=== PATIENT | female | born 1975 | race African-American/Black ===

== ENCOUNTER 2016-11-18 10:44 | Emergency (ER) | payer OTHER ==
[2016-11-18 11:00] VITALS: TEMP 98.3; BMI 45.1
--- NOTE | 2016-11-18 11:35 | PDOC ---
History of Present Illness - General Chief Complaint: Lightheaded Stated Complaint: DIZZINESS, CHEST TIGHTNESS, FATIGUE Time Seen by Provider: 11/18/16 11:15 History Source: Patient - History of Present Illness Timing/Duration: 1 week Associated Symptoms: denies: cough, diaphoresis, fever/chills, headaches, nausea /vomiting, shortness of breath, syncope, weakness Past History - Past Medical History Allergies/Adverse Reactions: Allergies Allergy/AdvReac Type Severity Reaction Status Date / Time ALL RAW FRUIT Allergy Severe TONGUE Uncoded 11/18/16 10:55 SWELLING Home Medications: Ambulatory Orders NK [No Known Home Medication] 11/18/16 Anemia: No Asthma: Yes Cancer: No Cardiac Disorders: No CVA: No COPD: No CHF: No Dementia: No Diabetes: No GI Disorders: No Disorders: No HTN: No Hypercholesterolemia: No Liver Disease: No Seizures: No Thyroid Disease: No - Surgical History Abdominal Surgery: No Appendectomy: No Cardiac Surgery: No Cholecystectomy: No Lung Surgery: No Neurologic Surgery: No Orthopedic Surgery: No - Psycho/Social/Smoking Cessation Hx Anxiety: No Suicidal Ideation: No Smoking History: Never smoked Have you smoked in the past 12 months: No Information on smoking cessation initiated: No Hx Alcohol Use: No Drug/Substance Use Hx: No Substance Use Type: None Hx Substance Use Treatment: No Review of Systems - Review of Systems Constitutional: No: Chills, Fever Respiratory: No: Cough, Shortness of Breath, Wheezing Cardiac (ROS): No: Lightheadedness, Palpitations, Syncope ABD/GI: No: Nausea, Vomiting Neurological: Yes: Dizziness. No: Headache *Physical Exam - Vital Signs Last Vital Signs Temp Pulse Resp BP Pulse Ox 98.3 F 78 18 162/93 100 11/18/16 10:56 11/18/16 10:56 11/18/16 10:56 11/18/16 10:56 11/18/16 10:56 - Physical Exam General Appearance: Yes: Appropriately Dressed. No: Apparent Distress HEENT: positive: Normal Voice Neck: positive: Supple Respiratory/Chest: positive: Lungs Clear, Normal Breath Sounds. negative: Respiratory Distress Cardiovascular: positive: Regular Rate, S1, S2 Extremity: positive: Normal Inspection Integumentary: positive: Dry, Warm Neurologic: positive: Fully Oriented, Alert, Normal Mood/Affect, Motor Strength 5/5. negative: Facial Droop Heart Score/ECG Review - ECG Intrepretation Comment:: 11/18/16 12:16 Twelve-lead EKG was performed and reviewed by me. There is normal sinus rhythm with a normal rate. The axis is normal. The intervals are normal. There are no ST or T wave abnormalities. Impression: Normal twelve-lead EKG ED Treatment Course - LABORATORY CBC & Chemistry Diagram: 11/18/16 11:49 11/18/16 11:40 - RADIOLOGY Radiology Studies Ordered: Category Date Time Status CHEST X-RAY PORTABLE* [RAD] Stat Radiology 11/18/16 11:24 Ordered Medical Decision Making - Medical Decision Making 11/18/16 11:30 41-year-old female, history of asthma, no prior admissions or intubation, uses pump and nebulizer machine at home here with multiple complaints. Patient complaining of intermittent dizziness 1 week, described as lightheadedness regardless of position and lasts for seconds to minutes. Also c/o blurred vision b/l. No vertigo, headache, nausea, vomiting, slurred speech or focal weakness. No history of similar episode in the past. Denies any inciting agents. Patient also complaining of intermittent chest tightness that started around the same time felt like her asthma, but for unclear reasons, did not try using her pump or machine. No wheezing, shortness of breath, diaphoresis, palpitations, leg pain or swelling. Currently asymptomatic See exam Chest tightness ?asthma flare, not great story for ACS and PERcs out Stable w/ clear chest/lungs -ekg/cxr/trop Dizziness ?metabolic (sig fmhx of DM though pt does not carry dx), doubt cardiac and unlikely CVA as no vertigo and no neuro deficits in ED -ekg -labs 11/18/16 14:08 Workup neg in ED. Pt remains asymptomatic and stable for discharge at this time to f/u with PMD if sxs persist 11/18/16 14:27 *DC/Admit/Observation/Transfer Diagnosis at time of Disposition: Dizziness, Chest tightness - Discharge Dispostion Disposition: HOME Condition at time of disposition: Good - Patient Instructions Printed Discharge Instructions: Dizziness, Nonvertigo Additional Instructions: Your blood work did not reveal any obvious reasons for your symptoms at this time. Please follow-up with your PMD if symptoms persist. Try to use albuterol pump for recurrent chest tightness to see if symptoms improve.
[2016-11-18 12:02] LABS: BASOPHIL 0.3 % (0-2.0); EOSINOPHIL 4.8 % (0-4.5); MCH 31.5 pg (25.7-33.7); MCHC 32.7 g/dl (32.0-36.0); MEAN CELL VOLUME 96.1 fl (80-96); MEAN PLT VOLUME 8.4 fl (7.5-11.1); NEUTROPHILS 55.2 % (42.8-82.8); PLATELET COUNT 224 K/MM3 (134-434); RDW 13.2 % (11.6-15.6); WHITE BLOOD COUNT 5.6 K/mm3 (4.0-10.0)
[2016-11-18 12:13] LABS: URINE APPEARANCE CLEAR; URINE BILIRUBIN NEGATIVE (NEGATIVE); URINE BLOOD NEGATIVE (NEGATIVE); URINE COLOR LTYELLOW; URINE GLUCOSE (UA) NEGATIVE (NEGATIVE); URINE KETONE NEGATIVE (NEGATIVE); URINE LEUK ESTERASE NEGATIVE (NEGATIVE); URINE NITRITE NEGATIVE (NEGATIVE); URINE PROTEIN NEGATIVE (NEGATIVE); URINE UROBILINOGEN NEGATIVE E.U./dl (0.2-1.0)
[2016-11-18 12:31] LABS: ALBUMIN 3.6 g/dl (3.4-5.0); ANION GAP 8 (8-16); BILIRUBIN,TOTAL 0.4 mg/dL (0.2-1.0); CALCIUM 8.8 mg/dL (8.5-10.1); CO2 26 mmol/L (21-32); CREATININE 0.7 mg/dL (0.55-1.02); GLUCOSE,RANDOM 112 mg/dL (74-106); SGOT/AST 14 U/L (15-37); SGPT/ALT 23 U/L (12-78); TOT PROT 6.8 g/dl (6.4-8.2)
[2016-11-18 12:34] LABS: ALK PHOS 72 U/L (45-117); TROPONIN I < 0.02 ng/ml (0.00-0.05)
--- NOTE | 2016-11-18 14:40 | PDOC ---
*Physical Exam - Vital Signs Last Vital Signs Temp Pulse Resp BP Pulse Ox 98.3 F 78 18 162/93 100 11/18/16 10:56 11/18/16 10:56 11/18/16 10:56 11/18/16 10:56 11/18/16 10:56 ED Treatment Course - LABORATORY CBC & Chemistry Diagram: 11/18/16 11:49 11/18/16 11:40 - ADDITIONAL ORDERS Additional order review: Laboratory Results 11/18/16 11/18/16 11/18/16 11:40 11:40 11:40 Sodium 139 Potassium 4.0 Chloride 105 Carbon Dioxide 26 Anion Gap 8 BUN 11 Creatinine 0.7 Creat Clearance w eGFR > 60 Random Glucose 112 H Calcium 8.8 Total Bilirubin 0.4 AST 14 L ALT 23 Alkaline Phosphatase 72 Creatine Kinase 161 CK-MB (CK-2) 1.470 Troponin I < 0.02 Total Protein 6.8 Albumin 3.6 Serum , Qual Negative Urine Color Ltyellow Urine Appearance Clear Urine pH 6.0 Ur Specific [place] 1.017 Urine Protein Negative Urine Glucose (UA) Negative Urine Ketones Negative Urine Blood Negative Urine Nitrite Negative Urine Bilirubin Negative Urine Urobilinogen Negative Ur Leukocyte Esterase Negative Urine HCG, Qual Cancelled 11/18/16 11:49 RBC 3.90 MCV 96.1 H MCHC 32.7 RDW 13.2 MPV 8.4 Neutrophils % 55.2 Lymphocytes % 32.7 Monocytes % 7.0 Eosinophils % 4.8 H Basophils % 0.3 - RADIOLOGY Radiology Studies Ordered: Category Date Time Status CHEST X-RAY PORTABLE* [RAD] Stat Radiology 11/18/16 11:24 Taken *DC/Admit/Observation/Transfer Diagnosis at time of Disposition: Dizziness, Chest tightness - Discharge Dispostion Disposition: HOME Condition at time of disposition: Good - Referrals - Patient Instructions Printed Discharge Instructions: Dizziness, Nonvertigo Additional Instructions: Your blood work did not reveal any obvious reasons for your symptoms at this time. Please follow-up with your PMD if symptoms persist. Try to use albuterol pump for recurrent chest tightness to see if symptoms improve. - Post Discharge Activity Work/School Note: Back to School
[2016-11-18 14:47] VITALS: BP 154/64; PULSE 76
--- NOTE | 2016-11-19 11:04 | EKG ---
Test Reason : Blood Pressure : / mmHG Vent. Rate : 076 BPM Atrial Rate : 076 BPM P-R Int : 180 ms QRS Dur : 074 ms QT Int : 396 ms P-R-T Axes : -01 069 057 degrees QTc Int : 445 ms NORMAL SINUS RHYTHM NORMAL ECG NO PREVIOUS ECGS AVAILABLE Confirmed by KEKE HONEYCUTT MD ([id number]) on 11/19/2016 11:04:26 AM Referred By: Confirmed By:KEKE HONEYCUTT MD
== END 2016-11-18 14:52 | disposition home or self-care (01) ==
LOC: JER 10:44
DX: R07.89 Other chest pain (principal); J45.909 Unspecified asthma, uncomplicated
CPT/HCPCS: 36415; 71010-TC; 80053; 81003; 82550; 82553; 84484; 84703; 85025; 93005; 93010; 99283-25

== ENCOUNTER 2017-01-31 09:37 | Emergency (ER) | payer OTHER ==
[2017-01-31 09:58] VITALS: BP 142/94; PULSE 87; TEMP 98.1; BMI 45.1
[2017-01-31] MEDS ORDERED: KETOROLAC TROMETHAMINE 60 MG/2 ML VIAL IM ONE (10:16)
[2017-01-31] MEDS ORDERED: diazePAM 5 MG TABLET PO ONE (10:16)
[2017-01-31] MEDS ORDERED: KETOROLAC TROMETHAMINE 60 MG/2 ML VIAL ONE (10:18)
[2017-01-31] MEDS ORDERED: diazePAM 5 MG TABLET ONE (10:19)
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
== END 2017-01-31 10:48 | disposition home or self-care (01) ==
LOC: JERFT 09:37
PROC: 3E0233Z Introduction of Anti-inflammatory into Muscle, Percutaneous Approach (ICD-10-PCS; principal; 2017-01-31)
DX: S16.1XXA Strain of muscle, fascia and tendon at neck level, initial encounter (principal); V78.1XXA Passenger on bus injured in noncollision transport accident in nontraffic accident, initial encounter; Y92.414 Local residential or business street as the place of occurrence of the external cause; Y93.89 Activity, other specified; Y99.0 Civilian activity done for income or pay
CPT/HCPCS: 72050-TC; 96372; 99281-25

== ENCOUNTER 2017-06-11 16:22 | Emergency (ER) | payer OTHER ==
[2017-06-11 16:41] VITALS: TEMP 98.4; BMI 48.4
[2017-06-11 18:14] LABS: BASOPHIL 0.4 % (0-2.0); EOSINOPHIL 3.8 % (0-4.5); MCH 32.4 pg (25.7-33.7); MCHC 33.6 g/dl (32.0-36.0); MEAN CELL VOLUME 96.6 fl (80-96); MEAN PLT VOLUME 8.5 fl (7.5-11.1); NEUTROPHILS 53.1 % (42.8-82.8); PLATELET COUNT 235 K/MM3 (134-434); RDW 13.7 % (11.6-15.6); WHITE BLOOD COUNT 6.8 K/mm3 (4.0-10.0)
--- NOTE | 2017-06-11 18:15 | PDOC ---
History of Present Illness - General Chief Complaint: Psychiatric Stated Complaint: LFT SIDE NUMBNESS Time Seen by Provider: 06/11/17 17:24 - History of Present Illness Initial Comments: 06/11/17 18:10 " The patient is a 42 year old female, with no significant past medical history, who presents to the emergency room with intermittent episodes of palpitations. Pt states that she feels like she is having panic attacks, but she has never been diagnosed with them. The episodes started about 2 weeks ago. When these episodes occur, she becomes very anxious and feels tingling in her hands and heart racing. She denies chest pain or SOB. She states that these episodes occur all of a sudden without any known trigger and last minutes. Pt has had these episodes in the past but has not had a work up for them. Denies fever, chills, nausea, vomiting. Denies SOB, cough. Denies increased stress. Denies caffeine intake. Allergies: NKDA, raw fruit Social Hx: No caffeine intake. No recreational drug use. Occasional alcohol use. The patient no longer has a PCP because her insurance changed. Past History - Past Medical History Allergies/Adverse Reactions: Allergies Allergy/AdvReac Type Severity Reaction Status Date / Time ALL RAW FRUIT Allergy Severe TONGUE Uncoded 06/11/17 16:41 SWELLING Home Medications: Ambulatory Orders NK [No Known Home Medication] 06/11/17 Anemia: No Asthma: Yes Cancer: No Cardiac Disorders: No CVA: No COPD: No CHF: No Dementia: No Diabetes: No GI Disorders: No Disorders: No HTN: No Hypercholesterolemia: No Liver Disease: No Seizures: No Thyroid Disease: No - Surgical History Abdominal Surgery: No Appendectomy: No Cardiac Surgery: No Cholecystectomy: No Lung Surgery: No Neurologic Surgery: No Orthopedic Surgery: No - Suicide/Smoking/Psychosocial Hx Smoking History: Never smoked Have you smoked in the past 12 months: No Hx Alcohol Use: No Drug/Substance Use Hx: No Substance Use Type: None Hx Substance Use Treatment: No Review of Systems - Review of Systems Comments:: 06/11/17 18:12 "GENERAL/CONSTITUTIONAL: No fever or chills. No weakness. HEAD, EYES, EARS, NOSE AND THROAT: No change in vision. No ear pain or discharge. No sore throat. CARDIOVASCULAR: + palpitations. No chest pain or shortness of breath. RESPIRATORY: No cough, wheezing, or hemoptysis. GASTROINTESTINAL: No nausea, vomiting, diarrhea or constipation. GENITOURINARY: No dysuria, frequency, or change in urination. MUSCULOSKELETAL: No joint or muscle swelling or pain. No neck or back pain. SKIN: No rash PSYCH: +nervous, anxious. NEUROLOGIC: No headache, vertigo, loss of consciousness, or change in strength/ sensation. ENDOCRINE: No increased thirst. No abnormal weight change. HEMATOLOGIC/LYMPHATIC: No anemia, easy bleeding, or history of blood clots. ALLERGIC/IMMUNOLOGIC: No hives or skin allergy." *Physical Exam - Vital Signs Last Vital Signs Temp Pulse Resp BP Pulse Ox 98.4 F 78 20 135/67 98 06/11/17 16:37 06/11/17 16:37 06/11/17 16:37 06/11/17 16:37 06/11/17 16:37 - Physical Exam Comments: 06/11/17 18:13 " GENERAL: Awake, alert, and fully oriented, in no acute distress HEAD: No signs of trauma EYES: PERRLA, EOMI, sclera anicteric, conjunctiva clear ENT: Auricles normal inspection, hearing grossly normal, nares patent, oropharynx clear without exudates. Moist mucosa NECK: Nontender, no stepoffs, Normal ROM, supple, no lymphadenopathy, JVD, or masses LUNGS: Breath sounds equal, clear to auscultation bilaterally. No wheezes, and no crackles HEART: Regular rate and rhythm, normal S1 and S2, no murmurs, rubs or gallops ABDOMEN: Soft, nontender, normoactive bowel sounds. No guarding, no rebound. No masses EXTREMITIES: Normal range of motion, no edema. No clubbing or cyanosis. No cords, erythema, or tenderness NEUROLOGICAL: Cranial nerves II through XII intact. 5/5 strength and sensation in all extremities, Normal speech, normal gait SKIN: Warm, Dry, normal turgor, no rashes or lesions noted. " Heart Score/ECG Review - ECG Impressions Comment:: 06/11/17 18:45 NSR, no ALVARO/STDs, no TWIs, intervals wnl, axis wnl ED Treatment Course - LABORATORY CBC & Chemistry Diagram: 06/11/17 18:00 06/11/17 18:00 Medical Decision Making - Medical Decision Making 06/11/17 18:13 42 yo F with intermittent episodes of palpitations and anxiety. Possible paroxysmal tachyarrhythmia. Also consider hyperthyroidism. Pt with normal vitals currently. Normal exam. - Labs, TSH, cardiac enzymes - EKG 06/11/17 18:57 CBC,CMP WBC 6.8 K/mm3 (4.0-10.0) 06/11/17 18:00 RBC 3.91 M/mm3 (3.60-5.2) 06/11/17 18:00 Hgb 12.7 GM/dL (10.7-15.3) 06/11/17 18:00 Hct 37.8 % (32.4-45.2) 06/11/17 18:00 MCV 96.6 fl (80-96) H 06/11/17 18:00 MCH 32.4 pg (25.7-33.7) 06/11/17 18:00 MCHC 33.6 g/dl (32.0-36.0) 06/11/17 18:00 RDW 13.7 % (11.6-15.6) 06/11/17 18:00 Plt Count 235 K/MM3 (134-434) 06/11/17 18:00 MPV 8.5 fl (7.5-11.1) 06/11/17 18:00 Neutrophils % 53.1 % (42.8-82.8) 06/11/17 18:00 Lymphocytes % 35.7 % (8-40) 06/11/17 18:00 Monocytes % 7.0 % (3.8-10.2) 06/11/17 18:00 Eosinophils % 3.8 % (0-4.5) 06/11/17 18:00 Basophils % 0.4 % (0-2.0) 06/11/17 18:00 Sodium 138 mmol/L (136-145) 06/11/17 18:00 Potassium 3.8 mmol/L (3.5-5.1) 06/11/17 18:00 Chloride 105 mmol/L (98-107) 06/11/17 18:00 Carbon Dioxide 27 mmol/L (21-32) 06/11/17 18:00 Anion Gap 6 (8-16) L 06/11/17 18:00 BUN 9 mg/dL (7-18) 06/11/17 18:00 Creatinine 0.7 mg/dL (0.55-1.02) 06/11/17 18:00 Creat Clearance w eGFR > 60 (>60) 06/11/17 18:00 Random Glucose 105 mg/dL (74-106) 06/11/17 18:00 Calcium 9.1 mg/dL (8.5-10.1) 06/11/17 18:00 Total Bilirubin 0.5 mg/dL (0.2-1.0) D 06/11/17 18:00 AST 18 U/L (15-37) D 06/11/17 18:00 ALT 32 U/L (12-78) D 06/11/17 18:00 Alkaline Phosphatase 73 U/L (45-117) 06/11/17 18:00 Creatine Kinase 159 IU/L (26-192) 06/11/17 18:00 Troponin I < 0.02 ng/ml (0.00-0.05) 06/11/17 18:00 Total Protein 7.0 g/dl (6.4-8.2) 06/11/17 18:00 Albumin 3.7 g/dl (3.4-5.0) 06/11/17 18:00 TSH 1.13 uIU/ml (0.358-3.74) 06/11/17 18:00 Labs wnl, Trop and TSH wnl. EKG unremarkable. Pt continues to be asymptomatic, clinically stable for DC. *DC/Admit/Observation/Transfer Diagnosis at time of Disposition: Palpitations - Discharge Dispostion Disposition: HOME - Referrals Referrals: Jensen Slaughter MD [Staff Physician] - - Patient Instructions Printed Discharge Instructions: DI for Palpitations Additional Instructions: Call the number provided to make an appointment with a primary care doctor. You will need a Holter monitor to further evaluate your palpitations. If you experience worsening palpitations, chest pain, shortness of breath, or any other concerning symptoms, return to the ER immediately. - Attestations Physician Attestion: 06/11/17 18:57 I, Dr. Greg Noble MD, attest that this document has been prepared under my direction and personally reviewed by me in its entirety. I further attest, that it accurately reflects all work, treatment, procedures and medical decision -making performed by me.
[2017-06-11 18:37] LABS: URINE APPEARANCE CLOUDY; URINE BILIRUBIN NEGATIVE (NEGATIVE); URINE BLOOD NEGATIVE (NEGATIVE); URINE COLOR YELLOW; URINE GLUCOSE (UA) NEGATIVE (NEGATIVE); URINE KETONE NEGATIVE (NEGATIVE); URINE LEUK ESTERASE TRACE (NEGATIVE); URINE NITRITE NEGATIVE (NEGATIVE); URINE PROTEIN NEGATIVE (NEGATIVE); URINE UROBILINOGEN NEGATIVE mg/dL (0.2-1.0)
[2017-06-11 18:40] LABS: URINE BACTERIA RARE /hpf (NONE SEEN); URINE MUCUS RARE; URINE RBC 1 /hpf (0-3); URINE WBC 1 /hpf (3-5)
[2017-06-11 18:44] LABS: ALBUMIN 3.7 g/dl (3.4-5.0); ANION GAP 6 (8-16); BILIRUBIN,TOTAL 0.5 mg/dL (0.2-1.0); CALCIUM 9.1 mg/dL (8.5-10.1); CO2 27 mmol/L (21-32); CREATININE 0.7 mg/dL (0.55-1.02); GLUCOSE,RANDOM 105 mg/dL (74-106); SGOT/AST 18 U/L (15-37); SGPT/ALT 32 U/L (12-78)
[2017-06-11 18:46] LABS: CPK 159 IU/L (26-192); TROPONIN I < 0.02 ng/ml (0.00-0.05)
[2017-06-11 18:53] LABS: ALK PHOS 73 U/L (45-117); THYROID STIMULATING HORMONE 1.13 uIU/ml (0.358-3.74)
[2017-06-11 19:10] VITALS: BP 132/87; PULSE 80
--- NOTE | 2017-06-12 10:43 | EKG ---
Test Reason : Blood Pressure : / mmHG Vent. Rate : 068 BPM Atrial Rate : 068 BPM P-R Int : 180 ms QRS Dur : 074 ms QT Int : 422 ms P-R-T Axes : 012 054 052 degrees QTc Int : 448 ms NORMAL SINUS RHYTHM NORMAL ECG WHEN COMPARED WITH ECG OF 18-NOV-2016 10:50, NO SIGNIFICANT CHANGE WAS FOUND Confirmed by EMERITA NARANJO MD ([id number]) on 06/12/2017 10:42:46 AM Referred By: Confirmed By:EMERITA NARANJO MD
== END 2017-06-11 19:09 | disposition home or self-care (01) ==
LOC: JER 16:22
DX: R00.2 Palpitations (principal)
CPT/HCPCS: 36415; 80053; 81003; 81015; 82553; 84443; 84484; 84703; 85025; 93005; 93010; 99283-25

== ENCOUNTER 2017-07-11 17:10 | Emergency (ER) | payer OTHER ==
[2017-07-11 17:24] VITALS: BP 144/83; PULSE 102; TEMP 98.3; BMI 47.6
--- NOTE | 2017-07-11 19:24 | PDOC ---
History of Present Illness - General Chief Complaint: Injury Stated Complaint: FALL INJURY Time Seen by Provider: 07/11/17 18:04 - History of Present Illness Initial Comments: 07/11/17 19:55 Chief complaint: Fall Patient is a 42-year-old female with a history of asthma who states she tripped and fell at 5 AM coming out of her apartment. Patient complaining of pain to the left little finger, both knees and the left ankle and foot. Patient denies any head injury and states she fell forward. Patient did not take pain medicine. Patient is ambulatory. GENERAL/CONSTITUTIONAL: No fever, weakness. dizziness HEAD, EYES, EARS, NOSE AND THROAT: No change in vision. No ear pain or discharge. No sore throat. CARDIOVASCULAR: No chest pain RESPIRATORY: No shortness of breath or cough GASTROINTESTINAL: No pain, nausea, vomiting, diarrhea or constipation GENITOURINARY: No dysuria MUSCULOSKELETAL: No neck or back pain, + left little finger, bilateral knees, left ankle and foot SKIN: No rash NEUROLOGIC: No headache, vertigo, loss of consciousness, or loss of sensation. GENERAL: The patient is awake, alert, and fully oriented, in no acute distress. HEAD: Normal with no signs of trauma. EYES: Pupils equal, round and reactive to light, sclera anicteric, conjunctiva clear. ENT: pharynx: no erythema, no exudate, uvula midline NECK: supple CHEST: clear, nontender, rr ABD: soft, nontender EXTREMITIES: Left upper extremity: Mild tenderness to the left little finger with abrasion to the dorsum at the PIP, able to flex and extend, neurovascular intact. Exam of the rest of the extremity is negative and bilateral knee tenderness and mild pain, able to flex and extend, left ankle and foot with mild tenderness, no deformity or ecchymosis. Neurovascular intact. Right upper extremity, Normal range of motion, no edema. NEUROLOGICAL: Normal speech, normal gait. SKIN: Warm, Dry Past History - Past Medical History Allergies/Adverse Reactions: Allergies Allergy/AdvReac Type Severity Reaction Status Date / Time ALL RAW FRUIT Allergy Severe TONGUE Uncoded 07/11/17 17:17 SWELLING Home Medications: Ambulatory Orders NK [No Known Home Medication] 06/11/17 Anemia: No Asthma: Yes Cancer: No Cardiac Disorders: No CVA: No COPD: No CHF: No Dementia: No Diabetes: No GI Disorders: No Disorders: No HTN: No Hypercholesterolemia: No Liver Disease: No Seizures: No Thyroid Disease: No - Surgical History Abdominal Surgery: No Appendectomy: No Cardiac Surgery: No Cholecystectomy: No Lung Surgery: No Neurologic Surgery: No Orthopedic Surgery: No - Suicide/Smoking/Psychosocial Hx Smoking History: Never smoked Have you smoked in the past 12 months: No If you are a former smoker, when did you quit?: 2014 Information on smoking cessation initiated: No Hx Alcohol Use: Yes (occasionally) Drug/Substance Use Hx: No Substance Use Type: None Hx Substance Use Treatment: No *Physical Exam - Vital Signs Last Vital Signs Temp Pulse Resp BP Pulse Ox 98.3 F 102 H 20 144/83 100 07/11/17 17:17 07/11/17 17:17 07/11/17 17:17 07/11/17 17:17 07/11/17 17:17 Medical Decision Making - Medical Decision Making 07/11/17 19:58 Patient who fell at 5 AM with injury to left little finger, both knees and left ankle and foot. Does not want pain medicine, will update tetanus given abrasion on the little finger and will get x-rays. 07/11/17 20:37 No obvious fractures on preliminary review of x-rays. Patient will call to get final report tomorrow during the day *DC/Admit/Observation/Transfer Diagnosis at time of Disposition: Multiple contusions - Discharge Dispostion Disposition: HOME Condition at time of disposition: Stable Admit: No - Referrals Referrals: Don Bahena MD [Staff Physician] - - Patient Instructions Printed Discharge Instructions: Contusion Additional Instructions: Clean with soap and water 2-3 times daily, apply bacitracin Have reevaluated if redness, pus, fever or getting worse Elevate You can apply ice for 20 minutes every 2 hours for the next 2 days Motrin 600 mg every 6 hours for pain. Call the orthopedist tomorrow
[2017-07-11] MEDS ORDERED: DIPHTH,PERTUSS(ACELL),TET 0.5 ML DISP.SYRIN IM ONE (19:33)
[2017-07-11] MEDS ORDERED: IBUPROFEN 600 MG TABLET (FP) PO ONE (20:28)
== END 2017-07-11 20:49 | disposition home or self-care (01) ==
LOC: JERFT 17:10
PROC: 3E0234Z Introduction of Serum, Toxoid and Vaccine into Muscle, Percutaneous Approach (ICD-10-PCS; principal; 2017-07-11)
DX: S90.02XA Contusion of left ankle, initial encounter (principal); S80.02XA Contusion of left knee, initial encounter; S80.01XA Contusion of right knee, initial encounter; S60.417A Abrasion of left little finger, initial encounter; W01.0XXA Fall on same level from slipping, tripping and stumbling without subsequent striking against object, initial encounter; Y93.89 Activity, other specified; Y92.038 Other place in apartment as the place of occurrence of the external cause
CPT/HCPCS: 73140-TC-LT; 73562-TC-LT; 73562-TC-RT; 73610-TC-LT; 73630-TC-LT; 90471; 90715; 99281-25

== ENCOUNTER 2019-11-15 10:38 | Emergency (ER) | payer OTHER ==
[2019-11-15 10:59] VITALS: BP 153/72; PULSE 93; TEMP 98.5; BMI 48.4
--- NOTE | 2019-11-15 12:13 | PDOC ---
History of Present Illness - General Chief Complaint: Cold Symptoms Stated Complaint: COLD SYS Time Seen by Provider: 11/15/19 12:03 - History of Present Illness Initial Comments: 11/15/19 12:12 44-year-old female with upper respiratory symptoms without fever x3 days. No systemic symptoms past medical history of asthma denies other comorbidities Past History - Past Medical History Allergies/Adverse Reactions: Allergies Allergy/AdvReac Type Severity Reaction Status Date / Time No Known Drug Allergies Allergy Verified 11/15/19 10:53 fruit AdvReac Severe Swelling Uncoded 11/15/19 10:53 Home Medications: Ambulatory Orders NK [No Known Home Medication] 06/11/17 Anemia: No Asthma: Yes Cancer: No Cardiac Disorders: No CVA: No COPD: No CHF: No Dementia: No Diabetes: No GI Disorders: No Disorders: No HTN: No Hypercholesterolemia: No Liver Disease: No Seizures: No Thyroid Disease: No - Surgical History Abdominal Surgery: No Appendectomy: No Cardiac Surgery: No Cholecystectomy: No Lung Surgery: No Neurologic Surgery: No Orthopedic Surgery: No - Psycho Social/Smoking Cessation Hx Smoking History: Never smoked Have you smoked in the past 12 months: No If you are a former smoker, when did you quit?: 2014 Information on smoking cessation initiated: No Hx Alcohol Use: No Drug/Substance Use Hx: No Substance Use Type: None Hx Substance Use Treatment: No Review of Systems - Review of Systems Constitutional: No: Chills, Diaphoresis, Fever, Malaise, Night Sweats HEENTM: Yes: Nose Congestion Respiratory: Yes: Cough *Physical Exam - Vital Signs Last Vital Signs Temp Pulse Resp BP Pulse Ox 98.5 F 93 H 16 153/72 100 11/15/19 10:53 11/15/19 10:53 11/15/19 10:53 11/15/19 10:53 11/15/19 10:53 - Physical Exam 11/15/19 12:12 GENERAL: The patient is awake, alert, and fully oriented, in no acute distress. HEAD: Normal with no signs of trauma. EYES: sclera anicteric, conjunctiva clear. ENT: Ears normal tympanic membranes normal oropharynx clear uvula midline NECK: Normal range of motion LUNGS: Breath sounds equal, clear to auscultation bilaterally. No wheezes, and no crackles. HEART: S1 and S2 without murmur, rub or gallop. ABDOMEN: Soft, nontender, normoactive bowel sounds. No guarding, no rebound. No masses. EXTREMITIES: Normal range of motion, no edema. No clubbing or cyanosis. No cords, erythema, or tenderness. NEUROLOGICAL: Cranial nerves II through XII grossly intact. PSYCH: Normal mood, normal affect. SKIN: Warm, Dry, normal turgor, no rashes or lesions noted. Medical Decision Making - Medical Decision Making 11/15/19 12:12 Supportive care for viral upper respiratory infection I have reviewed the pathophysiology with the patient. They are in agreement with the treatment plan all questions were answered to their satisfaction. Understanding for follow-up without fail was also conveyed to the patient. Again they are in agreement. Discharge - Discharge Information Problems reviewed: Yes Clinical Impression/Diagnosis: Viral URI with cough Condition: Stable Disposition: HOME - Admission No - Follow up/Referral Referrals: Josesito Khalil MD [Primary Care Provider] - - Patient Discharge Instructions Additional Instructions: Supportive care. Maintain hydration with Pedialyte. Tylenol and Motrin as directed for fever and body aches. Return to the emergency room for worsening symptoms. And without fail follow-up with your primary care physician in 1 to 2 days for further evaluation and treatment options. - Post Discharge Activity Work/Back to School Note: Back to Work
== END 2019-11-15 12:16 | disposition home or self-care (01) ==
LOC: JERFT 10:38
DX: J06.9 Acute upper respiratory infection, unspecified (principal); B97.89 Other viral agents as the cause of diseases classified elsewhere
CPT/HCPCS: 99281-25

== ENCOUNTER 2022-03-11 14:15 | Emergency (ER) | payer OTHER ==
[2022-03-11 14:42] VITALS: BP 137/86; PULSE 86; TEMP 98.3; BMI 45.1
[2022-03-11] MEDS ORDERED: ACETAMINOPHEN 500 MG TABLET (FP) PO ONE (16:56)
[2022-03-11] MEDS ORDERED: KETOROLAC TROMETHAMINE 30 MG/1 ML VIAL IM ONE (16:56)
[2022-03-11] MEDS ORDERED: ACETAMINOPHEN 500 MG TABLET (FP) ONE (16:58)
[2022-03-11] MEDS ORDERED: KETOROLAC TROMETHAMINE 30 MG/1 ML VIAL ONE (16:58)
== END 2022-03-11 18:33 | disposition home or self-care (01) ==
LOC: JERFT 14:15
PROC: 3E023GC Introduction of Other Therapeutic Substance into Muscle, Percutaneous Approach (ICD-10-PCS; principal; 2022-03-11)
DX: M25.561 Pain in right knee (principal)
CPT/HCPCS: 73560-TC-RT-FY; 96372; 99284-25

== ENCOUNTER 2022-04-24 06:35 | Emergency (ER) | payer OTHER ==
[2022-04-24 07:11] VITALS: BP 130/86; PULSE 78; RESP 17; TEMP 98; BMI 51.6
[2022-04-24] MEDS ORDERED: FLUORESCEIN NA 1 EA STRIP OD ONE (07:43)
[2022-04-24] MEDS ORDERED: FLUORESCEIN NA 1 EA STRIP ONE (07:49)
[2022-04-24] MEDS ORDERED: TETRACAINE 0.5% OPHTH SOLN 2 ML BOTTLE ONE (07:49)
== END 2022-04-24 08:00 | disposition home or self-care (01) ==
LOC: JERFT 06:35 → JER 06:35 → JERFT 08:00
DX: H10.33 Unspecified acute conjunctivitis, bilateral (principal)
CPT/HCPCS: 0241U-QW; 99283-25

== ENCOUNTER 2022-10-13 14:38 | Observation (INO) | payer OTHER ==
[2022-10-13 14:45] VITALS: BMI 48.6
[2022-10-13 15:57] LABS: BASO % 0.8 % (0-2.0); EOS % 4.2 % (0-4.5); HEMOGLOBIN 12.1 GM/dL (10.7-15.3); LYMPH % 44.8 % (8-40); MCH 31.2 pg (25.7-33.7); MCHC 32.6 g/dl (32.0-36.0); MEAN CELL VOLUME 95.6 fl (80-96); MEAN PLT VOLUME 8.7 fl (7.5-11.1); MONO % 6.5 % (3.8-10.2); NEUT % 43.7 % (42.8-82.8); PLATELET COUNT 260 10^3/uL (134-434); RBC 3.87 M/mm3 (3.60-5.2); RDW 13.5 % (11.6-15.6); WHITE BLOOD COUNT 6.3 K/mm3 (4.0-10.0)
[2022-10-13 16:07] LABS: INR 0.99 (0.83-1.09); PROTHROMBIN TIME (PATIENT) 11.4 SEC (9.7-13.0)
[2022-10-13 16:09] LABS: CALCIUM 8.9 mg/dL (8.5-10.1)
[2022-10-13 16:10] LABS: ACTIVATED PTT 32.4 SECONDS (25.2-36.5); ALBUMIN 3.3 g/dl (3.4-5.0)
[2022-10-13 16:11] LABS: BLOOD UREA NITROGEN 11.6 mg/dL (7-18)
[2022-10-13 16:13] LABS: CREATININE 0.8 mg/dL (0.55-1.3)
[2022-10-13 16:15] LABS: TOT PROT 6.8 g/dl (6.4-8.2)
[2022-10-13 16:16] LABS: BILIRUBIN,TOTAL 0.5 mg/dL (0.2-1)
[2022-10-13 18:24] LABS: PH,URINE 5.5 (5.0-8.0); URINE APPEARANCE CLEAR; URINE BILIRUBIN NEGATIVE (NEGATIVE); URINE COLOR YELLOW; URINE GLUCOSE (UA) NEGATIVE (NEGATIVE); URINE KETONE NEGATIVE (NEGATIVE); URINE LEUK ESTERASE NEGATIVE (NEGATIVE); URINE NITRITE NEGATIVE (NEGATIVE); URINE PROTEIN NEGATIVE (NEGATIVE); URINE UROBILINOGEN 0.2 mg/dL (0.2-1.0)
[2022-10-13] MEDS: TOPIRAMATE 25 MG TABLET PO SCH (21:36)
[2022-10-13] MEDS ORDERED: TOPIRAMATE 25 MG TABLET ONE (21:37)
[2022-10-14 03:04] VITALS: RESP 20
[2022-10-14] MEDS ORDERED: ATORVASTATIN CA 80 MG TABLET (FP) ONE ×2 (05:18→22:02)
[2022-10-14] MEDS: ATORVASTATIN CA 80 MG TABLET (FP) PO SCH ×2 (06:55→22:07)
[2022-10-14 07:19] LABS: BASO % 0.2 % (0-2.0); EOS % 5.2 % (0-4.5); HEMATOCRIT 35.6 % (32.4-45.2); HEMOGLOBIN 11.8 GM/dL (10.7-15.3); LYMPH % 50.4 % (8-40); MCH 31.8 pg (25.7-33.7); MCHC 33.3 g/dl (32.0-36.0); MEAN CELL VOLUME 95.5 fl (80-96); MEAN PLT VOLUME 8.9 fl (7.5-11.1); MONO % 7.4 % (3.8-10.2); NEUT % 36.8 % (42.8-82.8); PLATELET COUNT 238 10^3/uL (134-434); RBC 3.73 M/mm3 (3.60-5.2); RDW 13.4 % (11.6-15.6); WHITE BLOOD COUNT 6.3 K/mm3 (4.0-10.0)
[2022-10-14 07:49] LABS: CALCIUM 8.7 mg/dL (8.5-10.1)
[2022-10-14 07:51] LABS: ALBUMIN 3.1 g/dl (3.4-5.0); BLOOD UREA NITROGEN 8.7 mg/dL (7-18)
[2022-10-14 07:53] LABS: CREATININE 0.8 mg/dL (0.55-1.3); PHOSPHOROUS 3.6 mg/dL (2.5-4.9)
[2022-10-14 07:54] LABS: BILIRUBIN,TOTAL 0.4 mg/dL (0.2-1); TOT PROT 6.3 g/dl (6.4-8.2)
[2022-10-14] MEDS ORDERED: TOPIRAMATE 25 MG TABLET ONE (09:25)
[2022-10-14] MEDS ORDERED: ENOXAPARIN NA (PORCINE) 40 MG/0.4 ML DISP.SYRIN SQ ONE ×2 (09:25→22:03)
[2022-10-14] MEDS: ENOXAPARIN NA (PORCINE) 40 MG/0.4 ML DISP.SYRIN SQ SCH ×2 (09:28→22:07)
[2022-10-14] MEDS: TOPIRAMATE 25 MG TABLET PO SCH (09:28)
[2022-10-14] MEDS: INSULIN SLIDING SCALE (NOVOLOG) 1 VIAL SQ SCH ×4 (11:16→21:59)
[2022-10-15 03:21] VITALS: BP 155/77; PULSE 69; TEMP 98.7
[2022-10-15] MEDS ORDERED: ALPRAZolam 1 MG TABLET ONE (09:12)
[2022-10-15] MEDS ORDERED: TOPIRAMATE 25 MG TABLET ONE (09:12)
[2022-10-15] MEDS: TOPIRAMATE 25 MG TABLET PO SCH (09:13)
[2022-10-15] MEDS ORDERED: ALPRAZolam 1 MG TABLET PO PRN (09:55)
[2022-10-15] MEDS ORDERED: ACETAMINOPHEN 325 MG TABLET (FP) PO PRN (10:32)
[2022-10-15] MEDS: INSULIN SLIDING SCALE (NOVOLOG) 1 VIAL SQ SCH (11:23)
[2022-10-15] MEDS: ENOXAPARIN NA (PORCINE) 40 MG/0.4 ML DISP.SYRIN SQ SCH (11:24)
== END 2022-10-15 13:10 | disposition home or self-care (01) ==
LOC: JER 14:38 → JERBED 15:22
PROVIDERS: ADMIT Internal Medicine; ATTEND Internal Medicine
PROC: 3E023GC Introduction of Other Therapeutic Substance into Muscle, Percutaneous Approach (ICD-10-PCS; principal; 2022-10-13)
DX: R47.89 Other speech disturbances (principal); M62.81 Muscle weakness (generalized); J45.909 Unspecified asthma, uncomplicated; E78.5 Hyperlipidemia, unspecified; E11.9 Type 2 diabetes mellitus without complications; Z87.891 Personal history of nicotine dependence; E66.01 Morbid (severe) obesity due to excess calories; Z68.42 Body mass index [BMI] 45.0-49.9, adult; I10 Essential (primary) hypertension; Z91.018 Allergy to other foods
CPT/HCPCS: 0241U-QW; 36415; 70450-TC; 70551-TC; 80053; 80061; 81003; 82550; 82553; 82962; 83036; 83735; 84100; 84443; 84484; 84703; 85025; 85610; 85730; 86850; 86900; 86901; 87086; 93005; 93010; 93880-TC; 96372; 99285-25; G0378

== ENCOUNTER 2023-12-07 12:36 | Emergency (ER) | payer OTHER ==
[2023-12-07 12:41] VITALS: RESP 18; TEMP 97.7; BMI 51.6
[2023-12-07] MEDS ORDERED: ACETAMINOPHEN INJECTION 100 ML IVPB ONE (13:15)
[2023-12-07] MEDS: ACETAMINOPHEN 1000 MG/100 ML BAG IVPB ONE (13:29)
[2023-12-07] MEDS: ALBUTEROL SO4 2.5/IPRATROPIUM 0.5 INH SOL 3 ML VIAL.NEB. NEB SCH (13:29)
[2023-12-07] MEDS ORDERED: ALBUTEROL SO4 2.5/IPRATROPIUM 0.5 INH SOL 3 ML VIAL.NEB. NEB ONE (13:36)
[2023-12-07 14:03] LABS: BASO % 0.2 % (0-2.0); EOS % 0.1 % (0-4.5); HEMATOCRIT 41.4 % (32.4-45.2); HEMOGLOBIN 13.5 GM/dL (10.7-15.3); LYMPH % 36.7 % (8-40); MCH 31.4 pg (25.7-33.7); MCHC 32.7 g/dl (32.0-36.0); MEAN CELL VOLUME 96.2 fl (80-96); PLATELET COUNT 199 10^3/uL (134-434); RDW 13.8 % (11.6-15.6); WHITE BLOOD COUNT 7.3 K/mm3 (4.0-10.0)
[2023-12-07 14:08] LABS: POTASSIUM 4.1 mmol/L (3.5-5.1)
[2023-12-07 14:09] LABS: INR 1.05 (0.83-1.09); PROTHROMBIN TIME (PATIENT) 12.2 SEC (9.7-13.0)
[2023-12-07 14:11] LABS: ALBUMIN 3.3 g/dl (3.4-5.0); BLOOD UREA NITROGEN 14.3 mg/dL (7-18); CALCIUM 8.9 mg/dL (8.5-10.1)
[2023-12-07 14:12] LABS: ACTIVATED PTT 31.6 SECONDS (25.2-36.5)
[2023-12-07 14:14] LABS: CREATININE 1.3 mg/dL (0.55-1.3)
[2023-12-07 14:16] LABS: BILIRUBIN,TOTAL 0.8 mg/dL (0.2-1); TOT PROT 7.7 g/dl (6.4-8.2)
[2023-12-07] MEDS ORDERED: methylPREDNISolone NA SUCC 125 MG/2 ML VIAL ONE (14:43)
[2023-12-07] MEDS: methylPREDNISolone NA SUCC 125 MG/2 ML VIAL IVPB ONE (14:45)
[2023-12-07] MEDS: SODIUM CHLORIDE 0.9% 500 ML INFUS.BAG IV ONE (14:45)
[2023-12-07 17:07] VITALS: BP 137/61; PULSE 91
== END 2023-12-07 17:28 | disposition home or self-care (01) ==
LOC: JER 12:36
PROC: 3E033NZ Introduction of Analgesics, Hypnotics, Sedatives into Peripheral Vein, Percutaneous Approach (ICD-10-PCS; principal; 2023-12-07)
PROC: 3E033GC Introduction of Other Therapeutic Substance into Peripheral Vein, Percutaneous Approach (ICD-10-PCS; 2023-12-07)
PROC: 3E0F7GC Introduction of Other Therapeutic Substance into Respiratory Tract, Via Natural or Artificial Opening (ICD-10-PCS; 2023-12-07)
DX: R06.02 Shortness of breath (principal); R05.9 Cough, unspecified; R07.9 Chest pain, unspecified; J45.909 Unspecified asthma, uncomplicated; R50.9 Fever, unspecified; J10.1 Influenza due to other identified influenza virus with other respiratory manifestations; Z20.822 Contact with and (suspected) exposure to COVID-19
CPT/HCPCS: 0241U-QW; 36415; 71046-TC-FY; 80053; 84484; 85025; 85610; 85730; 93005; 93010; 99285-25; J0131